=== PATIENT | male | born 1990 | race American Indian/Alaskan Native ===

== ENCOUNTER 2021-04-11 15:06 | Emergency (ER) | payer SELFPAY ==
[2021-04-11 15:58] LABS: Basophils % (Auto) 0.5 % (0.0-1.8); Eosinophils # (Auto) 0.2 K/mm3 (0.0-0.4); Eosinophils % (Auto) 2.2 % (0.0-4.3); Hematocrit 47.7 % (35.5-45.6); Hemoglobin 15.8 gm/dl (11.8-15.2); Lymphocytes # (Auto) 2.5 K/mm3 (1.2-5.4); Lymphocytes % (Auto) 30.8 % (13.4-35.0); Mean Corpuscular HGB Conc 33 % (32-34); Mean Corpuscular Volume 90 fl (84-94); Monocytes # (Auto) 0.5 K/mm3 (0.0-0.8); Monocytes % (Auto) 6.3 % (0.0-7.3); Platelet Count 261 K/mm3 (140-440); Red Blood Count 5.33 M/mm3 (3.65-5.03); Red Cell Distribution Width 12.6 % (13.2-15.2)
[2021-04-11 16:19] LABS: Alanine Aminotransferase 41 units/L (7-56); Albumin 4.2 g/dL (3.9-5); BUN/Creatinine Ratio 13; Blood Urea Nitrogen 12 mg/dL (9-20); Hemolysis Index 21
[2021-04-11] MEDS ORDERED: IPRATROPIUM/ALBUTEROL SULFATE 3 ML AMPUL.NEB IH ONE ×2 (17:33→19:55)
[2021-04-11] MEDS ORDERED: ONDANSETRON 4 MG ODT TAB PO ONE ×2 (17:34→19:55)
[2021-04-11] MEDS ORDERED: predniSONE 20 MG TAB PO ONE ×2 (17:34→19:55)
[2021-04-11] MEDS ORDERED: FAMOTIDINE 20 MG TAB PO ONE ×2 (17:34→19:55)
--- NOTE | 2021-04-11 18:21 | XRay Report ---
CHEST 2 VIEWS INDICATION / CLINICAL INFORMATION: cough, wheezing, asthma. COMPARISON: None available. FINDINGS: SUPPORT DEVICES: None. HEART / MEDIASTINUM: No significant abnormality. LUNGS / PLEURA: No significant pulmonary or pleural abnormality. No pneumothorax. ADDITIONAL FINDINGS: No significant additional findings. IMPRESSION: 1. No acute findings. Signer Name: Manjinder Castillo MD Signed: 04/11/2021 6:16 PM Workstation Name: [id number]
--- NOTE | 2021-04-11 18:39 | Emergency Department Report ---
ED N/V/D HPI - General Chief complaint: Abdominal Pain Stated complaint: ASTHMA, IRRITATED STOMACH, FATIGUE Source: patient Mode of arrival: Ambulatory Limitations: No Limitations - History of Present Illness Initial comments: Patient is a 30-year-old -[place] male with a history of asthma who presents to the ED with complaint of acute onset persistent intermittent nausea and vomiting and diarrhea with mild diffuse abdominal pain for the last 3 weeks, worse in the last 2 days. Patient states that he has not been able to keep anything down in the last 2 days because of worsening nausea and vomiting. Patient also complains of persistent nasal and sinus congestion and dry cough with wheezing intermittently for the last 1 week. Patient states that he just relocated to [place] from [place] and ran out of his albuterol inhaler. Patient states that he would like a refill on his inhaler for persistent wheezing and shortness of breath. Patient denies chest pain, dizziness, syncope, fever, chills, hematochezia, hematemesis, dysuria, urinary frequency and urgency, nasal and sinus congestion, headache or neck pain. MD complaint: nausea, vomiting, abdominal pain, other (dry cough with wheezing) -: Sudden, week(s) (2) Description of Vomiting: food contents, bilious Description of Diarrhea: water Associated Abdominal Pain: Yes (epigastric pain) Location: epigastric Radiation: none Pain Scale: 4 Quality: aching, dull Consistency: intermittent Improves with: none Worsens with: none Context: possible food poisoning Associated Symptoms: denies other symptoms, loss of appetite, nausea/vomiting. denies: myalgias, chest pain, cough, diaphoresis, fever/chills, headaches, malaise, rash, dysuria, shortness of breath, syncope, weakness, other - Related Data Previous Rx's Medication Instructions Recorded Last Taken Type Albuterol Sulfate [Proventil Hfa] 1 - 2 puff IH Q6H PRN #1 hfa.aer.ad 04/11/21 Unknown Rx Benzonatate [Tessalon Perles] 100 mg PO Q8HR #30 capsule 04/11/21 Unknown Rx Dicyclomine [Bentyl] 20 mg PO Q6H PRN #30 tablet 04/11/21 Unknown Rx Diphenoxylate/Atropine [Lomotil] 1 - 2 tab PO Q4H PRN #12 tablet 04/11/21 Unknown Rx Famotidine [Pepcid] 20 mg PO BID #60 tablet 04/11/21 Unknown Rx Ondansetron [Zofran Odt] 4 mg PO Q8HR #20 tab.rapdis 04/11/21 Unknown Rx predniSONE [Deltasone] 40 mg PO QDAY #12 tab 04/11/21 Unknown Rx Allergies Allergy/AdvReac Type Severity Reaction Status Date / Time cephalexin [From Keflex] Allergy Anaphylaxis Verified 04/11/21 15:16 ED Review of Systems ROS: Stated complaint: ASTHMA, IRRITATED STOMACH, FATIGUE Other details as noted in HPI Constitutional: denies: chills, fever Eyes: denies: eye pain, eye discharge, vision change ENT: congestion. denies: ear pain, throat pain Respiratory: cough, wheezing. denies: shortness of breath Cardiovascular: denies: chest pain, palpitations Endocrine: no symptoms reported Gastrointestinal: abdominal pain, nausea, vomiting, diarrhea Genitourinary: denies: urgency, dysuria Musculoskeletal: denies: back pain, joint swelling, arthralgia Skin: denies: rash, lesions Neurological: denies: headache, weakness, paresthesias Psychiatric: denies: anxiety, depression Hematological/Lymphatic: denies: easy bleeding, easy bruising ED Past Medical Hx - Past Medical History Previous Medical History?: Yes Hx Asthma: Yes - Surgical History Past Surgical History?: Yes Additional Surgical History: hernia repair - Medications Home Medications: Home Medications Medication Instructions Recorded Confirmed Last Taken Type Albuterol Sulfate [Proventil Hfa] 1 - 2 puff IH Q6H PRN #1 hfa.aer.ad 04/11/21 Unknown Rx Benzonatate [Tessalon Perles] 100 mg PO Q8HR #30 capsule 04/11/21 Unknown Rx Dicyclomine [Bentyl] 20 mg PO Q6H PRN #30 tablet 04/11/21 Unknown Rx Diphenoxylate/Atropine [Lomotil] 1 - 2 tab PO Q4H PRN #12 tablet 04/11/21 Unknown Rx Famotidine [Pepcid] 20 mg PO BID #60 tablet 04/11/21 Unknown Rx Ondansetron [Zofran Odt] 4 mg PO Q8HR #20 tab.rapdis 04/11/21 Unknown Rx predniSONE [Deltasone] 40 mg PO QDAY #12 tab 04/11/21 Unknown Rx ED Physical Exam - General Limitations: No Limitations General appearance: alert, in no apparent distress - Head Head exam: Present: atraumatic, normocephalic, normal inspection - Eye Eye exam: Present: normal appearance, PERRL, EOMI Pupils: Present: normal accommodation - ENT ENT exam: Present: normal orophraynx, mucous membranes moist, TM's normal bila terally, normal external ear exam, other (Grossly congested nasal passages) - Neck Neck exam: Present: normal inspection, full ROM - Respiratory Respiratory exam: Present: wheezes (Diffuse coarse wheezes throughout). Absent: respiratory distress, rales, rhonchi, chest wall tenderness, accessory muscle use, decreased breath sounds, prolonged expiratory - Cardiovascular Cardiovascular Exam: Present: regular rate, normal rhythm, normal heart sounds. Absent: systolic murmur, diastolic murmur, rubs, gallop - GI/Abdominal GI/Abdominal exam: Present: soft, normal bowel sounds. Absent: tenderness, guarding, rebound, hyperactive bowel sounds - Extremities Exam Extremities exam: Present: normal inspection, full ROM, normal capillary refill - Back Exam Back exam: Present: normal inspection, full ROM. Absent: tenderness, CVA tenderness (R), muscle spasm, paraspinal tenderness - Neurological Exam Neurological exam: Present: alert, oriented X3, CN II-XII intact, normal gait, reflexes normal - Psychiatric Psychiatric exam: Present: normal affect, normal mood - Skin Skin exam: Present: warm, dry, intact, normal color. Absent: rash ED Course Vital Signs 04/11/21 15:18 Temperature 98.4 F Pulse Rate 71 Respiratory 18 Rate Blood Pressure 154/82 O2 Sat by Pulse 98 Oximetry ED Medical Decision Making - Lab Data Result diagrams: 04/11/21 15:32 04/11/21 15:32 - Radiology Data Radiology results: report reviewed, image reviewed [facility] [address] [place] [address] XRay Report Signed Patient: MARYA GÓMEZ MR#: [id number] 48 : 1990 Acct:[id number] Age/Sex: 30 / M ADM Date: 04/11/21 Loc: ED Attending Dr: Ordering Physician: ROMEL MCLAUGHLIN Date of Service: 05/18/21 Procedure(s): XR chest routine 2V Accession Number(s): [id number] cc: ROMEL MCLAUGHLIN Fluoro Time In Minutes: CHEST 2 VIEWS INDICATION / CLINICAL INFORMATION: cough, wheezing, asthma. COMPARISON: None available. FINDINGS: SUPPORT DEVICES: None. HEART / MEDIASTINUM: No significant abnormality. LUNGS / PLEURA: No significant pulmonary or pleural abnormality. No pneumot horax. ADDITIONAL FINDINGS: No significant additional findings. IMPRESSION: 1. No acute findings. Signer Name: Manjinder Castillo MD Signed: 04/11/2021 6:16 PM Workstation Name: [id number] Transcribed By: EVERETTE Dictated By: Manjinder Castillo MD Electronically Authenticated By: Manjinder Castillo MD Signed Date/Time: 04/11/211815 DD/ 15 TD/TT: Print - Medical Decision Making This is a 30-year-old -[place] male with a history of asthma who presents to the ED with complaint of acute onset persistent intermittent nausea and vomiting and diarrhea with mild diffuse abdominal pain for the last 3 weeks, worse in the last 2 days. Patient states that he has not been able to keep anything down in the last 2 days because of worsening nausea and vomiting. Patient also complains of persistent nasal and sinus congestion and dry cough with wheezing intermittently for the last 1 week. Patient states that he just relocated to [place] from [place] and ran out of his albuterol inhaler. Patient states that he would like a refill on his inhaler for persistent wheezing and shortness of breath. In the ED, patient is alert and oriented x3 and is not in any distress. Chest x-ray shows no acute cardiopulmonary ab normalities or pneumonitis. Lab test results were reviewed and are all nonactionable. Patient symptoms are likely due to viral gastroenteritis versus GERD and acute asthma exacerbation. Patient was treated in the ED for nausea and vomiting and also given antacids and also treated with DuoNeb and oral steroids. On reevaluation, patient's wheezing resolved with medications. Patient was discharged home on medications and advised to follow-up with his primary care physician in 5 to 7 days for reevaluation or return to the ED immediately if symptoms get worse. - Differential Diagnosis Gastroenteritis; Dehydration; GERD; Asthma exacerbation; Bronchitis Critical care attestation.: If time is entered above; I have spent that time in minutes in the direct care of this critically ill patient, excluding procedure time. ED Disposition Clinical Impression: Acute bronchitis with asthma with acute exacerbation, Acute gastroenteritis, Nausea, vomiting and diarrhea Disposition: - TO HOME OR SELFCARE Is pt being admited?: No Does the pt Need Aspirin: No Condition: Stable Instructions: Acute Bronchitis (ED), Viral Gastroenteritis, Adult, [id number], Nausea and Vomiting, Adult, [id number], Asthma, Adult, [id number] Additional Instructions: Take medication with food, drink plenty of fluids and follow-up with your primary care physician in 7 to 10 days for reevaluation. Return to the ED immediately if symptoms get worse. Prescriptions: Dicyclomine [Bentyl] 20 mg PO Q6H PRN #30 tablet PRN Reason: abdominal pain predniSONE [Deltasone] 40 mg PO QDAY #12 tab Diphenoxylate/Atropine [Lomotil] 1 - 2 tab PO Q4H PRN #12 tablet PRN Reason: Diarrhea Famotidine [Pepcid] 20 mg PO BID #60 tablet Albuterol Sulfate [Proventil Hfa] 1 - 2 puff IH Q6H PRN #1 hfa.aer.ad PRN Reason: Wheezing Benzonatate [Tessalon Perles] 100 mg PO Q8HR #30 capsule Ondansetron [Zofran Odt] 4 mg PO Q8HR #20 tab.rapdis Referrals: [facility] [Provider Group] - 3-5 Days Forms: Work/School Release Form(ED) Time of Disposition: 18:42 Print Language: TRINIDADIAN
[2021-04-11] MEDS ORDERED: ALBUTEROL 2.5 MG/3 ML NEBU IH ONE (20:41)
[2021-04-11 21:35] VITALS: BP 148/77
== END 2021-04-11 21:34 | disposition home or self-care (01) ==
LOC: ED 15:06
DX: J45.901 Unspecified asthma with (acute) exacerbation (principal); K52.9 Noninfective gastroenteritis and colitis, unspecified; Z98.890 Other specified postprocedural states; Z88.1 Allergy status to other antibiotic agents; Z79.899 Other long term (current) drug therapy
CPT/HCPCS: 36415; 71046; 80053; 85025; 94640; 99284; J7512; Q0162

== ENCOUNTER 2021-10-25 00:13 | Emergency (ER) | payer SELFPAY ==
[2021-10-25 00:17] VITALS: BP 149/75
[2021-10-25] MEDS ORDERED: IPRATROPIUM/ALBUTEROL SULFATE 3 ML AMPUL.NEB IH ONE (00:54)
[2021-10-25] MEDS ORDERED: dexAMETHasone 20 MG/5 ML VIAL IM ONE (00:54)
[2021-10-25] MEDS ORDERED: IBUPROFEN 800 MG TAB PO ONE (00:54)
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
== END 2021-10-25 04:05 | disposition home or self-care (01) ==
LOC: ED 00:13
DX: J45.40 Moderate persistent asthma, uncomplicated (principal); Z88.1 Allergy status to other antibiotic agents
CPT/HCPCS: 94640; 96372; 99282; J1100

== ENCOUNTER 2021-12-03 12:36 | Emergency (ER) | payer SELFPAY ==
[2021-12-03] MEDS ORDERED: IPRATROPIUM 0.02% NEBU 2.5 ML IH ONE (15:21)
[2021-12-03] MEDS ORDERED: ALBUTEROL 2.5 MG/3 ML NEBU IH ONE (15:21)
[2021-12-03] MEDS ORDERED: predniSONE 20 MG TAB PO ONE (15:22)
--- NOTE | 2021-12-03 15:28 | Emergency Department Report ---
HPI - General Chief Complaint: Adult Asthma Time Seen by Provider: 12/03/21 15:08 - HPI HPI: MSE 7 The patient is a 31-year-old male present with a chief complaint of shortness of breath. The patient states For 1 week his asthma has been "acting up." The patient suffers from shortness of breath and a cough occasionally productive of clear/yellow sputum. Patient states he felt as though he had chest congestion so he began to take Mucinex it but has not helped. The patient states he has not been vaccinated against COVID. Patient denies any known sick contacts. Patient denies history of fever. ED Past Medical Hx - Past Medical History Hx Asthma: Yes - Surgical History Additional Surgical History: hernia repair - Family History Family history: no significant - Social History Smoking Status: Never Smoker Substance Use Type: Marijuana - Medications Home Medications: Home Medications Medication Instructions Recorded Confirmed Last Taken Type Albuterol Sulfate [Proventil Hfa] 1 - 2 puff IH Q6H PRN #1 hfa.aer.ad 04/11/21 Unknown Rx Benzonatate [Tessalon Perles] 100 mg PO Q8HR #30 capsule 04/11/21 Unknown Rx Dicyclomine [Bentyl] 20 mg PO Q6H PRN #30 tablet 04/11/21 Unknown Rx Diphenoxylate/Atropine [Lomotil] 1 - 2 tab PO Q4H PRN #12 tablet 04/11/21 Unknown Rx Famotidine [Pepcid] 20 mg PO BID #60 tablet 04/11/21 Unknown Rx Ondansetron [Zofran Odt] 4 mg PO Q8HR #20 tab.rapdis 04/11/21 Unknown Rx predniSONE [Deltasone] 40 mg PO QDAY #12 tab 04/11/21 Unknown Rx Albuterol Mdi (or & Nicu Only) 2 puff IH QID PRN #8.5 gram 10/25/21 Unknown Rx [ProAir HFA Inhaler] Fluticasone (Nf) [Flovent Hfa(Nf)] 2 puff IH BID #1 puff 10/25/21 Unknown Rx Ibuprofen [Motrin 800 MG tab] 800 mg PO Q8HR PRN 5 Days #30 10/25/21 Unknown Rx tablet Montelukast [Singulair] 10 mg PO QPM #30 tablet 10/25/21 Unknown Rx predniSONE [Deltasone] 40 mg PO QDAY 5 Days #10 tab 10/25/21 Unknown Rx Albuterol Sulfate [Albuterol 0.63% 0.63 mg IH TID PRN #75 ml 12/03/21 Unknown Rx NEBS] Albuterol Sulfate [Proair 90 mcg IH QID PRN #1 12/03/21 Unknown Rx Respiclick] Azithromycin [Zithromax Z-POOJA] 0 mg PO DAILY #6 tab 12/03/21 Unknown Rx Benzonatate [Tessalon Perles] 100 mg PO Q8HR #30 cap 12/03/21 Unknown Rx Prednisone [predniSONE 10 mg 10 mg PO .TAPER #1 12/03/21 Unknown Rx (6-Day Pack, 21 Tabs)] ED Review of Systems ROS: Stated complaint: ASTHMA ATTACK Other details as noted in HPI Constitutional: denies: fever Eyes: denies: eye pain ENT: denies: throat pain Respiratory: cough, shortness of breath, wheezing Cardiovascular: denies: chest pain Endocrine: no symptoms reported Gastrointestinal: other. denies: vomiting Genitourinary: denies: dysuria Musculoskeletal: myalgia Neurological: denies: headache Physical Exam - Physical Exam Vital Signs: Vital Signs 12/03/21 13:00 Temperature 98.3 F Pulse Rate 88 Respiratory 20 Rate Blood Pressure 153/98 O2 Sat by Pulse 94 Oximetry Physical Exam: GENERAL: The patient is well-developed well-nourished male sitting in chair not appearing to be in acute distress HEENT: Normocephalic. Atraumatic. Extraocular motions are intact. Patient has moist mucous membranes. NECK: Supple. Trachea midline CHEST/LUNGS: Severely diminished with trace expiratory wheezing diffusely. There is no respiratory distress noted. HEART/CARDIOVASCULAR: Regular. There is no tachycardia. There is no gallop rub or murmur. ABDOMEN: Abdomen is soft, nontender. Patient has normal bowel sounds. There is no abdominal distention. SKIN: There is no rash. There is no edema. There is no diaphoresis. NEURO: The patient is awake, alert, and oriented. The patient is cooperative. The patient has no focal neurologic deficits. The patient has normal speech. GCS 15 MUSCULOSKELETAL: There is no evidence of acute injury. ED Course Vital Signs 12/03/21 13:00 Temperature 98.3 F Pulse Rate 88 Respiratory 20 Rate Blood Pressure 153/98 O2 Sat by Pulse 94 Oximetry - Reevaluation(s) Reevaluation #1: 12/03/21 17:46 Patient states he feels improved. 2-minute walking SPO2 96% on room air. ED Medical Decision Making - Lab Data Result diagrams: 12/03/21 16:35 12/03/21 16:35 Laboratory Tests 12/03/21 12/03/21 16:35 16:35 WBC 9.1 RBC 5.88 H Hgb 16.4 H Hct 52.0 H MCV 88 MCH 28 MCHC 32 RDW 13.0 L Plt Count 281 Sodium 142 Potassium 4.5 Chloride 105.4 Carbon Dioxide 21 L Anion Gap 20 BUN 15 Creatinine 1.0 Estimated GFR > 60 BUN/Creatinine Ratio 15 Glucose 88 Calcium 9.4 - Radiology Data Radiology results: report reviewed (Chest x-ray), image reviewed (Chest x-ray) interpreted by me: Chest x-ray-no definite focal infiltrates, pneumothorax [facility] [address] [place] [address] XRay Report Signed Patient: ÁNGEL GÓMEZ MR#: [id number] 48 : 1990 Acct:[id number] Age/Sex: 31 / M ADM Date: 12/03/21 Loc: ED Attending Dr: Ordering Physician: GWEN DE GUZMAN MD Date of Service: 12/03/21 Procedure(s): XR chest routine 2V Accession Number(s): [id number] cc: GWEN DE GUZMAN MD Fluoro Time In Minutes: CHEST 2 VIEWS INDICATION / CLINICAL INFORMATION: Shortness of breath and cough. COMPARISON: 04/11/21. FINDINGS: SUPPORT DEVICES: None. HEART / MEDIASTINUM: The heart size and pulmonary vasculature are normal. LUNGS / PLEURA: No significant pulmonary or pleural abnormality. No pneumothorax. ADDITIONAL FINDINGS: No significant additional findings. IMPRESSION: No acute abnormality or significant change. Signer Name: Ángel Galo MD Signed: 12/03/2021 3:40 PM Workstation Name: [id number] Transcribed By: RT Dictated By: Ángel Galo MD Electronically Authenticated By: Ángel Galo MD Signed Date/Time: 12/03/21 1540 DD/ 1540 TD/TT: Print Cancel - Differential Diagnosis Asthma exacerbation, COVID-19, bronchitis Critical care attestation.: If time is entered above; I have spent that time in minutes in the direct care of this critically ill patient, excluding procedure time. ED Disposition Clinical Impression: Acute asthma exacerbation, Cough Disposition: 01 HOME / SELF CARE / HOMELESS Is pt being admited?: No Does the pt Need Aspirin: No Condition: Stable Instructions: Asthma, Adult Additional Instructions: Return to the emergency department should you develop worsening symptoms, inability to tolerate food or liquids, high fever or any other concerns Prescriptions: Albuterol Sulfate [Albuterol 0.63% NEBS] 0.63 mg IH TID PRN #75 ml PRN Reason: Wheezing Prednisone [predniSONE 10 mg (6-Day Pack, 21 Tabs)] 10 mg PO .TAPER #1 Albuterol Sulfate [Proair Respiclick] 90 mcg IH QID PRN #1 PRN Reason: Wheezing Benzonatate [Tessalon Perles] 100 mg PO Q8HR #30 cap Azithromycin [Zithromax Z-POOJA] 0 mg PO DAILY #6 tab Referrals: PRIMARY CARE, [Primary Care Provider] - 3-5 Days [facility] [Provider Group] - 3-5 Days Time of Disposition: 17:43
--- NOTE | 2021-12-03 15:45 | XRay Report ---
CHEST 2 VIEWS INDICATION / CLINICAL INFORMATION: Shortness of breath and cough. COMPARISON: 04/11/21. FINDINGS: SUPPORT DEVICES: None. HEART / MEDIASTINUM: The heart size and pulmonary vasculature are normal. LUNGS / PLEURA: No significant pulmonary or pleural abnormality. No pneumothorax. ADDITIONAL FINDINGS: No significant additional findings. IMPRESSION: No acute abnormality or significant change. Signer Name: Ángel Galo MD Signed: 12/03/2021 3:40 PM Workstation Name: [id number]
[2021-12-03 16:58] LABS: Hemoglobin 16.4 gm/dl (11.8-15.2); Mean Corpuscular HGB Conc 32 % (32-34); Mean Corpuscular Volume 88 fl (84-94); Platelet Count 281 K/mm3 (140-440); Red Blood Count 5.88 M/mm3 (3.65-5.03)
[2021-12-03 17:17] LABS: BUN/Creatinine Ratio 15; Blood Urea Nitrogen 15 mg/dL (9-20); Calcium 9.4 mg/dL (8.4-10.2); Hemolysis Index 9
[2021-12-03 17:51] VITALS: BP 152/97
[2021-12-03 18:52] LABS: Platelet Estimate Consistent w Auto; RBC Morphology Normal; Total Cells Counted 100
== END 2021-12-03 17:51 | disposition home or self-care (01) ==
LOC: ED 12:36
DX: J45.901 Unspecified asthma with (acute) exacerbation (principal); F12.10 Cannabis abuse, uncomplicated
CPT/HCPCS: 36415; 71046; 80048; 85007; 85025; 99284; J7512